=== PATIENT | female | born 1985 | race Caucasian/White ===

== ENCOUNTER 2020-03-04 13:18 | Emergency (ER) | payer OTHER, SELFPAY ==
[2020-03-04 13:23] VITALS: BP 120/99; PULSE 89; RESP 20; TEMP 36.3; O2SAT 99
--- NOTE | 2020-03-04 13:32 | ED.DENTAL ---
HPI - Dental/Oral General Chief complaint: Dental/Oral Stated complaint: Dental Time Seen by Provider: 03/04/20 13:32 Source: patient Mode of arrival: ambulatory Limitations: no limitations History of Present Illness HPI Narrative: Ange Cody is a 34 yo female with a PMH of depression and anxiety who comes to express care with dental pain in lower front jaw. Started this AM. States pain is 8 out of 10. Feels like teeth move when she bites down there is bleeding of her gums. States when she woke up this morning there was blood on the pillow. States she has had tooth discomfort on and off for years but is afraid of the dentist so has not gone; pain in tooth 24-26 Related Data Allergies Allergy/AdvReac Type Severity Reaction Status Date / Time No Known Allergies Allergy Verified 07/17/19 11:31 Review of Systems Review of Systems: Narrative: CONSTITUTIONAL: Denies fever, chills, sweats. EYES: Denies visual changes, redness, discharge. ENT: Denies rhinorrhea, congestion, sore throat, otalgia. Frontal lower tooth pain CARDIOVASCULAR: Denies chest pain, palpitations, edema. RESPIRATORY: Denies dyspnea, wheezing, cough GASTROINTESTINAL: Denies abdominal pain, nausea, vomiting, diarrhea. GENITOURINARY: Denies dysuria, hematuria, abnormal discharge SKIN: Denies rash or itching. NEUROLOGIC: Denies numbness, or focal weakness. PSYCHIATRIC: Denies anxiety or depression. [facility] Past Medical History Medical History Anxiety Current severe episode of major depressive disorder without prior episode Surgical History Surgical History H/O arthroscopic knee surgery (~1990) Family History Family History Mother Family history of hypercholesterolemia Hypertension Grandparent Cerebrovascular accident Father Family history of malignant neoplasm Other Depression Social History Social History Smoking status: Never smoker Second hand tobacco smoke exposure: No Alcohol intake: never Gender identity (if verbalized by the patient): Female Comments At time of signature, I agree with nursing past medical, surgical, social and family history. There is no relevant family history pertinent to the presenting complaint. Exam Narrative: Exam Narrative: GENERAL: This is a well-nourished, well-developed patient, in moderate distress. HEAD: normocephalic, atraumatic. EYES: Sclera clear/white. Vision is grossly intact. EARS: External ears normal, Hearing grossly intact. NOSE: External nose normal w, no rhinorrhea. THROAT: Mucous membranes moist, posterior pharynx -no erythema; frontal jaw pain, tooth 26-28 with gum inflammation and small amount bleeding NECK: Neck supple, non-tender CARDIOVASCULAR: Regular rate and rhythm without murmurs, gallops, or rubs. RESPIRATORY: Clear to auscultation. Breath sounds equal bilaterally. No wheezes, rales, or rhonchi. GASTROINTESTINAL: Abdomen soft, non-tender, SKIN: warm, intact with no suspicious lesions or rash, good texture and turgor. NEURO: awake, alert, and oriented to person, place and time. There were no obvious focal neurologic abnormalities. Steady gait EXTREMITIES: Normal range of motion. BACK: Nontender without deformity Course Course Emergency Course: Patient started on penicillin and pain medication for her mouth she has a 3:00 appointment on Saturday with a dentist encouraged patient to keep this appointment in the meantime eat soft foods and use medications Vital Signs Vital signs: Vital Signs Temperature 97.3 F L 03/04/20 13:23 Pulse Rate 89 03/04/20 13:23 Respiratory Rate 20 03/04/20 13:23 Blood Pressure 120/99 H 03/04/20 13:23 Pulse Oximetry 99 03/04/20 13:23 Temperature 97.3 F L 03/04/20 13:23 Pulse Rate 89 03/04/20 13:23 Re
== END 2020-03-04 13:56 | disposition home or self-care (01) ==
PROVIDERS: Emergency Provider Nurse Practitioner; PCP Family Medicine
DX: K02.9 Dental caries, unspecified (principal); K04.7 Periapical abscess without sinus; F32.9 Major depressive disorder, single episode, unspecified; F41.9 Anxiety disorder, unspecified
CPT/HCPCS: 99213; G0463